=== PATIENT | female | born 1960 | race Caucasian/White ===

== ENCOUNTER → 2021-01-04 14:35 | Outpatient (BNVA) | payer OTHER, SELFPAY | PROVIDERS: Family Provider Family Medicine; Visit Provider Family Medicine | DX: Z00.00 Encounter for general adult medical examination without abnormal findings (principal); E78.00 Pure hypercholesterolemia, unspecified; I10 Essential (primary) hypertension | CPT/HCPCS: 80053; 80061; 85025 ==

== ENCOUNTER 2021-02-18 15:08 | Outpatient (CLI) | payer OTHER, SELFPAY ==
--- NOTE | 2021-02-18 15:30 | MM_ITS ---
WS: [id number] BILATERAL DIGITAL SCREENING MAMMOGRAPHY WITH CAD CLINICAL INFORMATION: screen for breast cancer HISTORY: Screening mammogram. No current complaints. COMPARISON: TECHNIQUE: Bilateral CC and MLO views. FINDINGS: The breasts are composed of heterogeneous fibroglandular density tissue, which can limit the detectio n of small underlying mass lesions. Again seen is the large hyperdense left breast lesion. This is in creased in size today measuring 4.6 x 4.4 cm. This is progressively increased in size since 2015 whic h is suspicious. This requires additional evaluation with diagnostic mammography and ultrasound. This measured only 9 mm in 2015. A few punctate calcifications left breast. Right breast is unchanged. MM/[place] [id number] IMPRESSION: BI-RADS: 0-Incomplete: Need additional imaging evaluation FOLLOW UP: Need Additional Imaging RECOMMEND FURTHER EVALUATION WITH LEFT BREAST DIAGNOSTIC MAMMOGRAPHY AND ULTRAS OUND.
== END 2021-02-18 15:09 | disposition home or self-care (01) ==
LOC: RADSHAW 15:11
PROVIDERS: Family Provider Family Medicine; PCP Family Medicine; Visit Provider Family Medicine
DX: Z12.31 Encounter for screening mammogram for malignant neoplasm of breast (principal)
CPT/HCPCS: 77067

== ENCOUNTER 2021-03-19 10:11 | Outpatient (CLI) | payer OTHER, SELFPAY ==
--- NOTE | 2021-03-19 10:30 | MM_ITS ---
WS: [id number] LEFT DIGITAL MAMMOGRAPHY WITH CAD CLINICAL INFORMATION: R92.8 - Other abnormal and inconclusive findings on diagn... COMPARISON: February 18, 2021 and TECHNIQUE: 4 views of the left breast were obtained. FINDINGS: Scattered fibroglandular densities of the left breast. Again seen is a large hyperdense left breast l esion measuring 4.6 x 4.4 cm unchanged. A few punctate calcifications left breast. Ultrasound is pend ing. ULTRASOUND BREAST LEFT TECHNIQUE: Ultrasound left breast focused area of concern. CLINICAL INFORMATION: R92.8 - Other abnormal and inconclusive findings on diagn... FINDINGS: Ultrasound left breast at the 12, 6, 3, and 9:00 positions and at the nipple. Additional evaluation o f the left axilla. Large complex cystic lesion with peripheral solid components posterior to the nipple. Solid component measures 1.8 x 1.7 x 2.0 CM. Cystic component measures 6.9 x 4.0 x 4.4 cm. Findings are indeterminan t and solid component is suspicious with increased vascularity. Recommend further evaluation with ult rasound-guided biopsy No lymphadenopathy in the left axilla. MM/[place] [id number] IMPRESSION: BI-RADS: 4-Suspicious Finding-Biopsy Should Be Considered FOLLOW UP: US Guided Biopsy Recommended
--- NOTE | 2021-03-19 11:00 | US_ITS ---
WS: [id number] LEFT DIGITAL MAMMOGRAPHY WITH CAD CLINICAL INFORMATION: R92.8 - Other abnormal and inconclusive findings on diagn... COMPARISON: February 18, 2021 and TECHNIQUE: 4 views of the left breast were obtained. FINDINGS: Scattered fibroglandular densities of the left breast. Again seen is a large hyperdense left breast l esion measuring 4.6 x 4.4 cm unchanged. A few punctate calcifications left breast. Ultrasound is pend ing. ULTRASOUND BREAST LEFT TECHNIQUE: Ultrasound left breast focused area of concern. CLINICAL INFORMATION: R92.8 - Other abnormal and inconclusive findings on diagn... FINDINGS: Ultrasound left breast at the 12, 6, 3, and 9:00 positions and at the nipple. Additional evaluation o f the left axilla. Large complex cystic lesion with peripheral solid components posterior to the nipple. Solid component measures 1.8 x 1.7 x 2.0 CM. Cystic component measures 6.9 x 4.0 x 4.4 cm. Findings are indeterminan t and solid component is suspicious with increased vascularity. Recommend further evaluation with ult rasound-guided biopsy No lymphadenopathy in the left axilla. US/[place] complete [id number] IMPRESSION: BI-RADS: 4-Suspicious Finding-Biopsy Should Be Considered FOLLOW UP: US Guided Biopsy Recommended
== END 2021-03-19 10:12 | disposition home or self-care (01) ==
LOC: RADSHAW 10:15
PROVIDERS: Family Provider Family Medicine; PCP Family Medicine; Visit Provider Family Medicine
DX: R92.8 Other abnormal and inconclusive findings on diagnostic imaging of breast (principal); N63.20 Unspecified lump in the left breast, unspecified quadrant
CPT/HCPCS: 76641; 77065

== ENCOUNTER 2021-03-31 11:56 | Outpatient (CLI) | payer OTHER, SELFPAY ==
--- NOTE | 2021-03-31 11:58 | US_ITS ---
WS: [id number] ULTRASOUND-GUIDED LEFT BREAST BIOPSY CLINICAL INFORMATION: R92.8 - Other abnormal and inconclusive findings on diagn... COMPARISON: None. FINDINGS: The procedure including risks, benefits, and complications were discussed with the patient who agreed to proceed. Using sterile technique patient was prepped and draped in the usual sterile fashion. Aft er 1% lidocaine utilizing real-time ultrasound guidance 65 cc of bloody fluid was aspirated from the cystic portion of the mass at the 12:00 position. Aspirate was sent for cytology. Subsequently 5 14-gauge cores were obtained of the left breast lesion nodular component at the 12 o'c lock position. Subsequently a titanium clip was placed in the biopsy cavity. No immediate complicatio ns. Pathology demonstrates A. Breast, left, 12 o'clock, ultrasound-guided biopsy: -Complex atypical papillary lesion. -Ancillary studies have been performed. Aspirate demonstrates numerous foamy macrophages, lymphocytes, and proteinaceous debris. No malignant cells. US/[place] [id number] IMPRESSION: 1. Uncomplicated ultrasound-guided left breast biopsy and aspiration. 2. The pathology demonstrates COMPLEX ATYPICAL PAPILLARY LESION. Recommend alex gical excision. BI-RADS: Post Biopsy FOLLOW UP: Surgical Biopsy Recommended RECOMMEND BREAST SURGERY CONSULTATION FOR EXCISION OF THE COMPLEX ATYPICAL YASSINE LLARY LEFT BREAST LESION
== END 2021-03-31 11:57 | disposition home or self-care (01) ==
LOC: RAD 11:57
PROVIDERS: PCP Family Medicine; Visit Provider Family Medicine
DX: R92.8 Other abnormal and inconclusive findings on diagnostic imaging of breast (principal); N63.25 Unspecified lump in the left breast, overlapping quadrants; N64.89 Other specified disorders of breast
CPT/HCPCS: 19083; 88112; 88173; 88305

== ENCOUNTER → 2021-06-22 14:32 | Outpatient (BNVA) | payer OTHER, SELFPAY | PROVIDERS: PCP Family Medicine; Visit Provider Registered Nurse Neonatal Intensive Care | DX: S89.90XA Unspecified injury of unspecified lower leg, initial encounter (principal); M25.562 Pain in left knee; Z68.37 Body mass index [BMI] 37.0-37.9, adult; F17.210 Nicotine dependence, cigarettes, uncomplicated; Z71.89 Other specified counseling; M11.262 Other chondrocalcinosis, left knee; X58.XXXA Exposure to other specified factors, initial encounter | CPT/HCPCS: 73562 ==

== ENCOUNTER → 2023-03-21 12:41 | Outpatient (BNVA) | payer OTHER, SELFPAY | PROVIDERS: PCP Family Medicine; Visit Provider Family Medicine | DX: E78.00 Pure hypercholesterolemia, unspecified (principal); I10 Essential (primary) hypertension | CPT/HCPCS: 80053; 80061; 85025 ==

== ENCOUNTER 2023-12-12 13:54 | Emergency (ER) | payer OTHER, SELFPAY ==
[2023-12-12 14:14] VITALS: BP 179/77; PULSE 65; RESP 16; TEMP 36.9; O2SAT 96
--- NOTE | 2023-12-12 14:37 | ED_ITS ---
HPI - Extremity Problem General: Chief complaint: Extremity Problem,Nontraumatic Stated complaint: right side hip pain Time Seen by Provider: 12/12/23 14:37 Source: patient Mode of arrival: ambulatory Limitations: no limitations History of Present Illness: Patient is a very pleasant 63-year-old female presents to ED today with a complaint of pain to the lateral aspect of her right hip that she has had approximately a week. 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 She also reports a history of left-sided sciatica pain and wonders if maybe she overcompensated. Patient feels like pain is worse when squatting, going from a seated to standing position, and crossing her legs. She has not noticed any redness or warmth to the joint. She has not noticed any swelling to the leg. Denies burning or nerve like sensation. She does not complain of lower back pain. No numbness, tingling, loss of sensation. She is ambulatory on the extremity without assistance during her visit today. MD Complaint: joint pain Onset (ago): day(s) Pain Consistency: constant Location: right and lower extremity (hip) Radiation: none Relieving factors: immobilization and rest Exacerbating factors: range of motion, weight bearing and walking Associated symptoms: Reports no associated symptoms; Deny chest pain, fever(s) or rash Review of Systems Const: Denies: fever(s), chills, body aches, fatigue or malaise Card: Denies: chest pain Resp: Denies: dyspnea Musc: Reports: joint pain (R hip); Denies: neck pain, back pain, extremity pain, extremity swelling, joint swelling, joint redness, joint warmth, joint stiffness, muscle cramps or muscle weakness Skin/Breast: Denies: rash Neuro: Denies: numbness in extremities, weakness in extremities or sensory changes [facility] ED PFSH: Medical History Lumbar disc disease with radiculopathy Hypercholesteremia Hypertension Social History Smoking and tobacco/nicotine status: current every day tobacco/nicotine user Alcohol intake: current Substance/Drug Use: never Physical Exam Const: COMMON NORMALS: no acute distress, patient oriented x3, no limitations, healthy appearing, alert and well nourished Back/Pelvis: COMMON NORMALS: thoracic and lumbar spine normal to inspection, no thoracic nor lumbar tenderness, thoraco-lumbar ROM normal and straight leg raise negative bilaterally Extremity: COMMON NORMALS: capillary refill normal, no joint enlargement, no clubbing, cyanosis or edema, no calf tenderness and no pedal edema NARRATIVE EXTREMITY EXAM: distal pulses palpated bilaterally, brisk cap refill, sensation intact; no calf pain; no color/temp changes to extremities; no edema GENERAL: Yes normal exam except as noted RIGHT LOWER EXTREMITY: Yes hip joint (TTP to lateral R hip overlying greater trochanter) Right hip: Yes ROM (normal ROM but pain elicited with abduction/adduction and rotational) and Yes neurovascular exam (normal) Neuro: COMMON NORMALS: patient oriented x3, moves all extremities, no focal motor deficits and no sensory deficits noted SENSORIUM/ORIENTATION: Yes alert Skin: COMMON NORMALS: no rashes or lesions noted GENERAL SKIN EXAM: no rashes or lesions noted Course Vital Signs: Vital signs: Vital Signs Temperature 98.5 F 12/12/23 14:14 Pulse Rate 69 12/12/23 14:53 Respiratory Rate 16 12/12/23 14:14 Blood Pressure 150/65 12/12/23 14:53 Pulse Oximetry 96 12/12/23 14:53 Oxygen Delivery Me thod Room Air 12/12/23 14:53 MDM - Extremity (Nontraumatic) Medical Decision Making Patient's history and physical exam is consistent with a greater trochanter bursitis. She will be treated with steroids and anti-inflammatories with recommendations for ice and rest. Recommend follow-up with primary care in 1 to 2 weeks if symptoms do not seem to be improving. No radiology studies performed this visit Discharge Plan Discharge Patient Disposition: Home Clinical Impression: Greater trochanteric bursitis of right hip Condition: Stable Prescriptions: New prednisone 10 mg tablet 10 mg PO DAILY 6 Days Qty: 20 0RF Rx Instructions: Take 5 tabs on day 1-2, 4 tabs on day 3, 3 tabs on day 4, 2 tabs on day 5, and 1 tab on day 6 ibuprofen 800 mg tablet 800 mg PO Q8H PRN (Reason: pain) Qty: 20 0RF No Action aspirin [Adult Low Dose Aspirin] 81 mg tablet,delayed release (DR/EC) 81 mg PO BEDTIME multivitamin Tablet 1 tab PO QAM Vitamin B-12 1,000 mcg Tablet 1,000 mcg PO QAM cranberry 500 mg Capsule 500 mg PO QAM Vitamin D3 25 mcg (1,000 unit) Capsule 25 mcg PO QAM metoprolol succinate 50 mg tablet extended release 24 hr 50 mg PO BEDTIME Discharge Orders: Discharge ED (Routine); Ordered 12/12/23 Ordered By: Aissatou Pinedo Referrals: Tj Benavidez MD [Primary Care Provider] - Patient Instructions: Hip Bursitis (ED) Coding Level of Care Code ED [employer] for [facility]
[2023-12-12 14:53] VITALS: BP 150/65; PULSE 69; O2SAT 96
[2023-12-12] MEDS: ketorolac 60 mg/2 mL INJ IM (14:57)
[2023-12-12] MEDS: dexamethasone 10 mg/mL INJ IM (14:59)
== END 2023-12-12 15:10 | disposition home or self-care (01) ==
PROVIDERS: Emergency Provider Physician Assistant; PCP Family Medicine
DX: M70.61 Trochanteric bursitis, right hip (principal); Z79.82 Long term (current) use of aspirin; Z72.0 Tobacco use
CPT/HCPCS: 96372; 99284; J1100; J1885

== ENCOUNTER → 2024-06-06 09:02 | Outpatient (BNVA) | payer OTHER, SELFPAY | PROVIDERS: PCP Family Medicine; Visit Provider Family Medicine | DX: I10 Essential (primary) hypertension (principal) | CPT/HCPCS: 80053; 85025 ==